=== PATIENT | female | born 1970 | race Caucasian/White ===

== ENCOUNTER 2019-01-28 15:34 | Emergency (ER) | payer SELFPAY ==
[~2019-01-28] VITALS: Ht 162.6 cm; Wt 79.4 kg
[~2019-01-28 15:34] MED LIST: AMPH15TA PO; CEPH250T PO; CEPH500C PO; CYCL10TA9; CYCL10TA9 PO; DCS100C PO; DICY10CA26; DICY10CA26 PO; DICY20TA57; DIPH50CA33 PO; DPH25C; HTN MED; HYDR1TAB3; L GA1CAP PO; LEVO125T6 PO; LEVO175T6 PO; LISI-594 PO; MAGN296S; MELO-198 PO; MEPE50TA; METO-354 PO; MTC10T; OMEP20CA6; OMEP20TA2 PO; ONDN4T; OXYC-12; POLY17PO23 GT; SENN-1 PO; THYROID MED; TRIA1TAB5 PO
[2019-01-28] MEDS ORDERED: fentaNYL INJECTION 100 MCG/2 ML AMP IVP ONE (16:45)
[2019-01-28] MEDS ORDERED: NS IV 1000 ML 1,000 ML IV SCH (16:45)
[2019-01-28 16:46] LABS: BASOPHILS # (AUTO) 0.1 10^3/uL (0.0-0.1); BASOPHILS % (AUTO) 1 % (0-10); EOSINOPHILS # (AUTO) 0.1 10^3/uL (0.0-0.3); EOSINOPHILS % (AUTO) 1 % (0-10); HEMATOCRIT 40 % (35-52); HEMOGLOBIN 13.8 G/DL (11.5-16.0); LYMPHOCYTES # (AUTO) 1.4 X 10^3 (1.0-4.0); LYMPHOCYTES % (AUTO) 16 % (12-44); MEAN CORPUSCULAR HEMOGLOBIN 23 PG (25-34); MEAN CORPUSCULAR HGB CONC 35 G/DL (32-36); MEAN CORPUSCULAR VOLUME 66 FL (80-99); MEAN PLATELET VOLUME 10.4 FL (7.4-10.4); MONOCYTES # (AUTO) 0.8 X 10^3 (0.0-1.0); MONOCYTES % (AUTO) 9 % (0-12); NEUTROPHILS # (AUTO) 6.3 X 10^3 (1.8-7.8); NEUTROPHILS % (AUTO) 73 % (42-75); PLATELET COUNT 368 10^3/uL (130-400); RED CELL DISTRIBUTION WIDTH 14.9 % (10.0-14.5); WHITE BLOOD COUNT 8.6 10^3/uL (4.3-11.0)
[2019-01-28] MEDS ORDERED: NS 100 ML (IVPB) BAG IV ONE (17:00)
[2019-01-28] MEDS ORDERED: IOHEXOL 350 MG/ML 100 ML (OMNIPAQUE 350) VIAL IV ONE (17:00)
[2019-01-28] MEDS ORDERED: CATHETER FLUSH 10 ML SYR IV PRN (17:00)
[2019-01-28] MEDS ORDERED: HOLD METFORMIN - RECEIVED CONTRAST 20 ML VIAL IV SCH (17:00)
[2019-01-28 17:09] LABS: ALANINE AMINOTRANSFERASE 13 U/L (0-55); ALBUMIN 4.5 GM/DL (3.2-4.5); ALKALINE PHOSPHATASE 63 U/L (40-136); AMYLASE 36 U/L (25-125); BILIRUBIN,TOTAL 0.5 MG/DL (0.1-1.0); BUN/CREATININE RATIO 11; CALCIUM 9.8 MG/DL (8.5-10.1); CARBON DIOXIDE 20 MMOL/L (21-32); CHLORIDE 102 MMOL/L (98-107); CREATININE SERUM 0.71 MG/DL (0.60-1.30); GFR ESTIMATED > 60; GLUCOSE 114 MG/DL (70-105); LIPASE 8 U/L (8-78); SODIUM 136 MMOL/L (135-145); TOTAL PROTEIN 7.3 GM/DL (6.4-8.2)
--- NOTE | 2019-01-28 17:29 | Diagnostic Imaging Report ---
PROCEDURE: CT abdomen and pelvis with contrast. TECHNIQUE: Multiple contiguous axial images were obtained through the abdomen and pelvis after administration of intravenous contrast. INDICATION: Abdominal pain and distention. COMPARISON: Comparison made with prior examination from 10/29/2016. FINDINGS: The heart size is normal. The lung bases are clear. The liver is normal in size. There is some focal fatty infiltration near the falciform ligament. There are no other focal liver lesions. Gallbladder is surgically absent. There is no biliary ductal dilatation. Spleen is normal. Pancreas and adrenal glands are unremarkable. Kidneys are normal in appearance. The aorta is nonaneurysmal. Bowel gas pattern is nonspecific. There is no free air. There is no ascites. There are no focal inflammatory changes. There is no pelvic mass, adenopathy, or free fluid. There is mild lumbar spondylosis. IMPRESSION: No acute abnormality in the abdomen or pelvis. Specifically, there is no evidence of bowel obstruction. Dictated by: Dictated on workstation # [id number]
[2019-01-28 18:12] LABS: BILIRUBIN,URINE NEGATIVE (NEGATIVE); CLARITY,URINE CLEAR; COLOR,URINE YELLOW; GLUCOSE, URINE (UA) NEGATIVE (NEGATIVE); KETONES,URINE NEGATIVE (NEGATIVE); LEUKOCYTE ESTERASE ,URINE NEGATIVE (NEGATIVE); NITRITE,URINE NEGATIVE (NEGATIVE); PH,URINE 7 (5-9); PROTEIN,URINE 2+ (NEGATIVE); UROBILINOGEN,URINE NORMAL (NORMAL)
[2019-01-28] MEDS ORDERED: ONDANSETRON 4 MG/2 ML (SDV) Z0FRAN IVP ONE (18:15)
[2019-01-28 18:18] LABS: BACTERIA,URINE NEGATIVE /HPF
[2019-01-28] MEDS ORDERED: ONDN4T PO (18:30)
[2019-01-28] MEDS ORDERED: RX-ONDANSETRON 4 MG ODT (ZOFRAN) PPK #4 PO STA (18:31)
--- NOTE | 2019-01-28 18:31 | ED Abdominal Pain ---
General Chief Complaint: -Female Stated Complaint: MASS IN INTESTINE/NAUSEA Nursing Triage Note: Pt reports feeling as if there is a "mass" in the intestines. Pt reports trying laxatives and enemas and has had no relief. Pt reports only passing watery stool. PT c/o abdominal pain and nause and vomiting. Pt reports problem has persisted for a couple of months. Sepsis Screen: No Definite Risk Allergies and Home Medications Allergies Coded Allergies: Penicillins (Unverified Allergy, Mild, UTICARIA, 02/17/10) Home Medications Amphet Asp/Amphet/D-Amphet 15 Mg Tablet, 15 MG PO DAILY, (Reported) Cyclobenzaprine Hcl 10 Mg Tablet, 10 MG PO Q8HR, (Reported) Dicyclomine Hcl 10 Mg Capsule, 2 EACH PO QID, (Reported) Diphenhydramine Hcl 50 Mg Tablet, 50 MG PO HS, (Reported) L Gasseri/B Bifidum/B Longum 1 Each Capsule, 1 EACH PO BID, (Reported) Levothyroxine Sodium 125 Mcg Tablet, 250 MCG PO DAILY, (Reported) Lisinopril 5 Mg Tablet, 5 MG PO DAILY, (Reported) Meloxicam 7.5 Mg Tablet, 1 EACH PO DAILY, (Reported) Metoclopramide Hcl 10 Mg Tab, 10 MG PO TID PRN, (Reported) Omeprazole 20 Mg Tablet.dr, 20 MG PO BID, (Reported) Polyethylene Glycol 17 Gm Pack, 17 GM GT BID, (Reported) Past [id number] Hx Patient Social History Alcohol Use: Denies Use Recreational Drug Use: No (weed one time yesterday, otherwise denies use) Smoking Status: Current Everyday Smoker Type Used: Cigarettes Recent Foreign Travel: No Contact w/Someone Who Travel: No Recent Infectious Disease Expo: No Recent Hopitalizations: Yes Physical Abuse: No Sexual Abuse: No Immunizations Up To Date Date of Pneumonia Vaccine: Nov 14, 2010 Date of Influenza Vaccine: Aug 23, 2012 Past Medical History Surgeries: No (gallbladder) Respiratory: No Cardiac: Yes (ON MEDICATION FOR INCREASED BLOOD PRESSURE) Neurological: No Reproductive Disorders: Yes Genitourinary: Yes Kidney Stones Gastrointestinal: Yes (CHRONIC CONSTIPATION) Musculoskeletal: Yes Endocrine: Yes Hypothyroidsim Psychosocial: No Blood Disorders: Yes (heavy periods) Physical Exam Vital Signs Vital Signs - First Documented 01/28/19 16:10 Temp 97.9 Pulse 113 Resp 22 B/P (MAP) 124/87 (99) Pulse Ox 98 O2 Delivery Room Air Capillary Refill : Less Than 3 Seconds Height/Weight/BMI Height: 5'4.00" Weight: 175lbs. oz. 79.646250wu; BMI Method:Stated Progress/Results/Core Measures Results/Orders Lab Results Laboratory Tests Test 01/28/19 16:38 01/28/19 18:00 Range/Units White Blood Count 8.6 4.3-11.0 10^3/uL Red Blood Count 5.95 H 4.35-5.85 10^6/uL Hemoglobin 13.8 11.5-16.0 G/DL Hematocrit 40 35-52 % Mean Corpuscular Volume 66 L 80-99 FL Mean Corpuscular Hemoglobin 23 L 25-34 PG Mean Corpuscular Hemoglobin Concent 35 32-36 G/DL Red Cell Distribution Width 14.9 H 10.0-14.5 % Platelet Count 368 130-400 10^3/uL Mean Platelet Volume 10.4 7.4-10.4 FL Neutrophils (%) (Auto) 73 42-75 % Lymphocytes (%) (Auto) 16 12-44 % Monocytes (%) (Auto) 9 0-12 % Eosinophils (%) (Auto) 1 0-10 % Basophils (%) (Auto) 1 0-10 % Neutrophils # (Auto) 6.3 1.8-7.8 X 10^3 Lymphocytes # (Auto) 1.4 1.0-4.0 X 10^3 Monocytes # (Auto) 0.8 0.0-1.0 X 10^3 Eosinophils # (Auto) 0.1 0.0-0.3 10^3/uL Basophils # (Auto) 0.1 0.0-0.1 10^3/uL Sodium Level 136 135-145 MMOL/L Potassium Level 3.0 L 3.6-5.0 MMOL/L Chloride Level 102 98-107 MMOL/L Carbon Dioxide Level 20 L 21-32 MMOL/L Anion Gap 14 5-14 MMOL/L Blood Urea Nitrogen 8 7-18 MG/DL Creatinine 0.71 0.60-1.30 MG/DL Estimat Glomerular Filtration Rate > 60 BUN/Creatinine Ratio 11 Glucose Level 114 H 70-105 MG/DL Calcium Level 9.8 8.5-10.1 MG/DL Corrected Calcium 9.4 8.5-10.1 MG/DL Total Bilirubin 0.5 0.1-1.0 MG/DL Aspartate Amino Transf (AST/SGOT) 12 5-34 U/L Alanine Aminotransferase (ALT/SGPT) 13 0-55 U/L Alkaline Phosphatase 63 40-136 U/L Total Protein 7.3 6.4-8.2 GM/DL Albumin 4.5 3.2-4.5 GM/DL Amylase Level 36 25-125 U/L Lipase 8 8-78 U/L Urine Color YELLOW Urine Clarity CLEAR Urine pH 7 5-9 Urine Specific [place] 1.005 L 1.016-1.022 Urine Protein 2+ H NEGATIVE Urine Glucose (UA) NEGATIVE NEGATIVE Urine Ketones NEGATIVE NEGATIVE Urine Nitrite NEGATIVE NEGATIVE Urine Bilirubin NEGATIVE NEGATIVE Urine Urobilinogen NORMAL NORMAL MG/DL Urine Leukocyte Esterase NEGATIVE NEGATIVE Urine RBC (Auto) NEGATIVE NEGATIVE Urine RBC NONE /HPF Urine WBC NONE /HPF Urine Squamous Epithelial Cells NONE /HPF Urine Crystals NONE /LPF Urine Bacteria NEGATIVE /HPF Urine Casts NONE /LPF Urine Mucus NEGATIVE /LPF Urine Culture Indicated NO My Orders Orders - OMER DEWEY Comprehensive Metabolic Panel (01/28/19 16:39) Lipase (01/28/19 16:39) Amylase (01/28/19 16:39) Ua Culture If Indicated (01/28/19 16:39) Saline Lock/Iv-Start (01/28/19 16:39) Cbc With Automated Diff (01/28/19 16:39) Ct Abdomen/Pelvis W (01/28/19 16:39) Ns Iv 1000 Ml (Sodium Chloride 0.9%) (01/28/19 16:45) Fentanyl Injection (Sublimaze Injection (01/28/19 16:45) Iohexol Injection (Omnipaque 350 Mg/Ml 1 (01/28/19 17:00) Received Contrast (Contrast Received) (01/28/19 17:00) Sodium Chloride Flush (Catheter Flush Sy (01/28/19 17:00) Ns (Ivpb) (Sodium Chloride 0.9% Ivpb Bag (01/28/19 17:00) Ondansetron Injection (Zofran Injectio (01/28/19 18:15) Medications Given in ED Current Medications Medications Dose Ordered Sig/Dax Route Start Time Stop Time Status Last Admin Dose Admin Fentanyl Citrate 50 mcg ONCE ONCE IVP 01/28/19 16:45 01/28/19 16:46 DC 01/28/19 16:46 50 MCG Iohexol 100 ml ONCE ONCE IV 01/28/19 17:00 01/28/19 17:01 DC 01/28/19 17:16 100 ML Ondansetron HCl 4 mg ONCE ONCE IVP 01/28/19 18:15 01/28/19 18:16 DC 01/28/19 18:21 4 MG Sodium Chloride 10 ml NEEDED PRN IV 01/28/19 17:00 01/28/19 17:16 10 ML Sodium Chloride 100 ml ONCE ONCE IV 01/28/19 17:00 01/28/19 17:01 DC 01/28/19 17:16 80 ML Vital Signs/I&O 01/28/19 16:10 Temp 97.9 Pulse 113 Resp 22 B/P (MAP) 124/87 (99) Pulse Ox 98 O2 Delivery Room Air Blood Pressure Mean: 99 Departure Impression Primary Impression: Nausea vomiting and diarrhea Disposition: HOME, SELF-CARE Condition: Stable/Unchanged Departure-Patient Inst. Decision time for Depature: 18:28 Referrals: JHONATHAN FERREIRA (PCP/Family) Primary Care Physician Patient Instructions: Viral Gastroenteritis, Adult (DC) Add. Discharge Instructions: Take medications as directed. Clear liquid diet for 24 hours and then advance as tolerated. Follow-up with your primary care provider within 1 week for recheck. Return back to the emergency room for worsening symptoms or concerns as needed. All discharge instructions reviewed with patient and/or family. Voiced understanding. Scripts Ondansetron HCl (Zofran) 4 Mg Tab 4 MG PO Q4H, #14 TAB Prov: OMER DEWEY 01/28/19 OMER DEWEY Jan 28, 2019 18:31
[2019-01-28 18:54] VITALS: BP 124/87
== END 2019-01-28 18:55 | disposition home or self-care (01) ==
LOC: EDUNIT# 15:34 → ER 15:35
DX: R11.2 Nausea with vomiting, unspecified (principal); R19.7 Diarrhea, unspecified; E03.9 Hypothyroidism, unspecified; F17.210 Nicotine dependence, cigarettes, uncomplicated; Z88.0 Allergy status to penicillin; Z87.442 Personal history of urinary calculi; Z87.19 Personal history of other diseases of the digestive system
CPT/HCPCS: 36415; 74177; 80053; 81000; 82150; 83690; 85025